=== PATIENT | female | born 2000 | race African-American/Black ===

== ENCOUNTER 2023-04-28 01:10 | Outpatient (CLI) | payer OTHER ==
[~2023-04-28] VITALS: Ht 160 cm; Wt 77.2 kg
[2023-04-28 01:31] VITALS: BP 128/69
== END 2023-04-28 02:52 | disposition home or self-care (01) ==
LOC: M LDO 01:10
PROVIDERS: ATTEND Specialist
DX: O47.03 False labor before 37 completed weeks of gestation, third trimester (principal); Z3A.31 31 weeks gestation of pregnancy
CPT/HCPCS: 59025; G0463

== ENCOUNTER 2025-02-21 18:20 | Emergency (ER) | payer OTHER ==
[~2025-02-21] VITALS: Ht 160 cm; Wt 64.3 kg
[2025-02-21] MEDS ORDERED: APRITAB (18:38)
[2025-02-21 20:54] VITALS: TEMP 97.8
[2025-02-21 23:00] VITALS: BP 131/78; O2SAT 100
[2025-02-21] MEDS ORDERED: COLA100C5 PO (23:24)
== END 2025-02-21 23:35 | disposition home or self-care (01) ==
LOC: M ED 18:20
DX: N81.6 Rectocele (principal); K59.00 Constipation, unspecified; F17.290 Nicotine dependence, other tobacco product, uncomplicated; F10.10 Alcohol abuse, uncomplicated; Z91.048 Other nonmedicinal substance allergy status; Z79.899 Other long term (current) drug therapy

== ENCOUNTER 2025-04-11 02:00 | Emergency (ER) | payer OTHER ==
[~2025-04-11] VITALS: Ht 160 cm; Wt 65.0 kg
[~2025-04-11 02:00] MED LIST: APRITAB; COLA100C5 PO
[2025-04-11 06:48] LABS: BASO # 0.0 10^3/uL (0.0-0.2); BASO % 0.2 % (0.0-1.0); EOS # 0.0 10^3/uL (0.0-0.5); EOS % 0.2 % (0.0-3.0); LYMPH # 2.5 10^3/uL (1.5-5.0); LYMPH % 20.2 % (24.0-44.0); MONO # 0.6 10^3/uL (0.0-0.8); MONO % 4.8 % (2.0-8.0); NEUTROPHILS # 9.3 10^3/uL (1.5-8.5); NEUTROPHILS % 74.3 % (36.0-66.0); PLATELET COUNT, AUTOMATED 359 10^3/uL (150-450)
[2025-04-11] MEDS: diphenhydrAMINE 50 MG/ML VIAL IV ONE (06:50)
[2025-04-11] MEDS: NS (Normal Saline) 0.9% 1,000 ML IV ONE (06:50)
[2025-04-11] MEDS: KETOROLAC 30 MG/ML 1 ML VIAL IV ONE (06:50)
[2025-04-11] MEDS: ACETAMINOPHEN 500 MG TAB PO ONE (06:51)
[2025-04-11 06:53] LABS: C REACTIVE PROTEIN QUANTITATIV 1.79 MG/DL (<1.0); CALCIUM LEVEL 9.0 MG/DL (8.5-10.1); CARBON DIOXIDE LEVEL 21 MMOL/L (20-31); CHLORIDE LEVEL 106 MMOL/L (98-107); CREATININE FOR GFR 0.76 MG/DL (0.55-1.30); GLOMERULAR FILTRATION RATE > 90.0 (>60); POTASSIUM SERUM 4.6 MMOL/L (3.5-5.1); SODIUM LEVEL 134 MMOL/L (136-145)
[2025-04-11 07:03] LABS: ERYTHROCYTE SEDIMENTATION RATE 68 mm/hr (0-20)
[2025-04-11 08:28] VITALS: BP 104/55; TEMP 98.4; O2SAT 97
[2025-04-11] MEDS ORDERED: KETO-204 PO (08:38)
== END 2025-04-11 08:54 | disposition home or self-care (01) ==
LOC: M ED 02:00
DX: R51.9 Headache, unspecified (principal); Z91.048 Other nonmedicinal substance allergy status; Z79.2 Long term (current) use of antibiotics; Z79.3 Long term (current) use of hormonal contraceptives
CPT/HCPCS: 70450; 80048; 85025; 85652; 86140; 87486; 87581; 87633; 87798; 96361; 96374; 99284; J1200; J1885; J2765